=== PATIENT | female | born 1975 ===

== ENCOUNTER 2018-07-14 08:22 | Emergency (ER) | payer OTHER ==
[~2018-07-14] VITALS: Ht 165.1 cm; Wt 58.1 kg
[2018-07-14] MEDS ORDERED: RELAX & SLEEP1 EACH PO (08:40)
[2018-07-14] MEDS ORDERED: NORFLEX100MG PO (12:45)
[2018-07-14] MEDS ORDERED: KETO10TA2 PO (12:45)
[2018-07-14] MEDS ORDERED: MEDROLPACK PO (12:45)
== END 2018-07-14 14:45 | disposition home or self-care (01) ==
LOC: ER 08:22
DX: M54.5 Low back pain (principal)

== ENCOUNTER → 2018-07-14 | Outpatient (CLI) | payer OTHER ==
[~2018-07-14] MED LIST: KETO10TA2 PO; MEDROLPACK PO; NORFLEX100MG PO; RELAX & SLEEP1 EACH PO
== END | disposition home or self-care (01) ==
LOC: MRI 13:38
DX: M54.89 Other dorsalgia (principal)
CPT/HCPCS: 72148